=== PATIENT | female | born 1980 | race Hispanic/Latino ===

== ENCOUNTER 2024-12-13 17:13 | Emergency (ER) | payer MEDICAID ==
[~2024-12-13] VITALS: Ht 162.6 cm; Wt 90.7 kg
[2024-12-13] MEDS ORDERED: Solu-medROL 125MG VIAL IVP ONE (17:30)
--- NOTE | 2024-12-13 17:34 | ERN ---
ED Note History of Present Illness Stated Complaint: ASTHMA, SHORTNESS OF BREATH, HOT-FLASHES Chief Complaint: Adult-Asthma Time Seen by MD: 17:14 Dictation: Patient is a 44-year-old asthmatic female coming in today with a expiratory wheezing and shortness a breath over the last 1-2 days. She denies fever chills loss of taste or smell. She states her cough is nonproductive and has been using her Children's nebulizer medications in her machine. She states she went to her doctor's office this afternoon at 05:00 o'clock and he had changed his hours. Allergies: Coded Allergies: No Known Allergies (Unverified Allergy, Unknown, 12/13/24) Past Medical History Past Medical History: Arthritis, Asthma, Hypertension Additional Past Medical Hx: POLIO Surgical History: Cholecystectomy, History: Not Applicable RN Note Reviewed/Agreed w/PFSH: Yes Review of System Dictation CONSTITUTIONAL: Negative except for HPI HEAD/FACE: Negative except for HPI EENT: Negative except for HPI RESPIRATORY: Negative except for HPI expiratory wheezing and shortness a breath GASTROINTESTINAL/ABDOMINAL: Negative except for HPI GENITOURINARY: Negative except for HPI MUSCULOSKELETAL: Negative except for HPI INTEGUMENTARY: Negative except for HPI NEUROLOGICAL/PSYCH: Negative except for HPI HEMATOLOGIC/LYMPHATIC: Negative except for HPI All Systems Negative, Except as noted above. 13 point review of systems assessed and all negative except for above. Initial Vital Sign VS Vital Signs Date Time Temp Pulse Resp B/P (MAP) Pulse Ox O2 Delivery O2 Flow Rate FiO2 12/13/24 17:20 98.1 73 22 148/90 100 Room Air 0 12/13/24 19:42 21 Physical Exam Dictation Vital Signs reviewed General Appearance: Alert, oriented x 3, moderate acute distress, well developed, nourished. Head and Face: non-traumatic. Eyes: PERRL, pink conjunctivas, eyelid no trauma, anterior chamber with arcus senilis. Ears: Pinnas intact and no signs of trauma or erythema ear canals clear and no discharge TM no erythema Nose: No discharge, no bleeding. Oropharynx: Mouth normal, tongue pink, pharynx clear,no erythema, tonsils no exudates, no abscesses noted, mucous memb aspen moist Neck: Supple, non-tender, no thyromegaly, no masses, no JVD, no bruits Breast:Deferred Chest:No tenderness, no crepitus, no paradoxical movement, no retractions Lungs:Clear, well-ventilated, symmetric, bilateral expiratory wheezes throughout, decreased breath sounds. Shortness a breath with speech Heart: Regular rate, regular rhythm, no murmur, no gallops Vascular: no peripheral edema, Abdomen: Soft, positive bowel sounds, nondistended, no guarding, nontender, no rebound, no masses no hepatomegaly, no splenomegaly, no Hubbard's sign, no hernias. Rectal: Deferred Genital: Deferred Neurological: Normal speech, motor function intact, sensory function intact Musculoskeletal: Neck nontender, full range of motion, back nontender, full range of motion, Extremities: nontender, full range of motion Skin: Color pink, dry, no turgor, no rash, no lacerations, no abrasions, no contusions. Lymphatic: Deferred Results (Laboratory/Radiology) Labs Reviewed?: Yes ED Course ED Course Orders Procedure Category Date Status Time Saline Lock Iv CPOE 12/13/24 Transmitted 17:21 Methylprednisolone PHA 12/13/24 Complete Succ 125mg (Solu-Medr 17:30 Albuterol 0.083% PHA 12/13/24 Complete 2.5mg/3ml (Proventil 17:30 Budesonide 0.5 Mg/2 PHA 12/13/24 Complete Ml Inh (Pulmicort 0. 17:21 Methylprednisolone PHA 12/13/24 Complete Succ 125mg (Solu-Medr 18:00 Azithromycin PHA 12/13/24 Logged (Zithromax) 20:30 Current Medications Medications (Trade) Dose Ordered Sig/Go Route PRN Reason Start Time Stop Time Status Last Admin Dose Admin Albuterol Sulfate (Proventil 0.083% 2.5mg/3ml) 5 mg ONCE ONCE IH 12/13/24 17:30 12/13/24 17:31 DC 12/13/24 19:36 Azithromycin (Zithromax) 500 mg ONCE ONCE PO 12/13/24 20:30 12/13/24 20:31 UNV Budesonide (Pulmicort 0.5 Mg/2ml) 1 mg ONCE STAT IH 12/13/24 17:21 12/13/24 17:30 DC 12/13/24 19:32 Methylprednisolone Sodium Succinate (Solu-medROL 125MG) 125 mg ONCE ONCE IM 12/13/24 18:00 12/13/24 18:01 DC 12/13/24 19:29 Methylprednisolone Sodium Succinate (Solu-medROL 125MG) 125 mg ONCE ONCE IVP 12/13/24 17:30 12/13/24 17:36 DC Vital Signs Date Time Temp Pulse Resp B/P (MAP) Pulse Ox O2 Delivery O2 Flow Rate FiO2 12/13/24 19:42 98.1 72 16 145/85 98 Room Air* 0 21 12/13/24 19:38 78 19 12/13/24 17:20 98.1 73 22 148/90 100 Room Air 0 2010/respirations unlabored and patient more clear at this time. She will be discharged home after receiving azithromycin 500 mg p.o. with prednisone, albuterol and Zithromax for three more days. She was told to follow up with her primary care doctor tomorrow without fail for management of her asthma. Medical Decision Making MDM Medical decision-making based on empiric treatment for acute asthma flare. Patient received budesonide/albuterol/Solu-Medrol/azithromycin. Discharged home with albuterol/azithromycin/prednisone Told see her primary care doctor for follow up DX & DISP Disposition: Discharge Departure Impression: Primary Impression: Acute asthma flare Condition: Stable Scripts Azithromycin (Zithromax Tri-Missael) 500 Mg Tablet 1 TAB PO DAILY for 3 Days, #3 TAB 0 Refills Prov: SILVIA ACEVEDO NP 12/13/24 Albuterol Sulfate (Albuterol Sulfate) 2.5 Mg/0.5 Ml Vial.neb 2.5 MG IH Q6H for wheezing/sob, #25 INH 0 Refills Prov: SILVIA ACEVEDO NP 12/13/24 Prednisone (Prednisone) 20 Mg Tablet 1 TAB PO AD for 6 Days, #14 TAB 0 Refills TAKE 1 TAB BY MOUTH THREE TIMES PER DAY X3 DAYS, THEN TAKE 1 TAB BY MOUTH TWICE A DAY X2 DAYS, THEN TAKE 1 TAB BY MOUTH ONCE A DAY X1 DAY. Prov: SILVIA ACEVEDO NP 12/13/24 Additional Instructions: Follow-up with primary care provider in 1 to 2 days. Take medications as directed here in the emergency room. Okay to continue home medications unless otherwise discussed during your visit in the emergency room today. Return to your nearest emergency room if symptoms worsen or if there is no improvement. Call 911 if you need immediate assistance. Take Tylenol or Motrin [id number] as needed and if no contraindications are present. Increase oral hydration. A wound culture or urine culture was ordered here in the emergency room department please follow-up with primary care provider and advise them to get repeat ports from our facility. If you had any Vishnu wrap/splints that were applied here, please do not remove them until you see your primary care or specialty. Use albuterol every4 hours while awake for the next two days. Take prednisone as directed until gone., see your your primary care doctor without fail for management tomorrow or the next day. Time of Disposition: 20:13 I have reviewed the case, and I agree with, Diagnosis and Plan SILVIA ACEVEDO NP Dec 13, 2024 17:34
[2024-12-13] MEDS: Solu-medROL 125MG VIAL IM ONE (19:29)
[2024-12-13] MEDS: BUDESONIDE 0.5 MG/2 ML INH IH STA (19:32)
[2024-12-13] MEDS: ALBUTEROL 0.083% 2.5 MG/3 ML INH IH ONE (19:36)
[2024-12-13 19:38] VITALS: PULSE 78; RESP 19
[2024-12-13] MEDS ORDERED: AZIT500T2 PO (20:14)
[2024-12-13] MEDS ORDERED: PRED20TA3 PO (20:14)
[2024-12-13] MEDS ORDERED: AUD IH (20:14)
[2024-12-13] MEDS ORDERED: AZITHROMYCIN 250 MG TABLET PO ONE (20:30)
[2024-12-13 20:42] VITALS: BP 142/82; PULSE 70; RESP 18; TEMP 98.3; O2SAT 98
== END 2024-12-13 20:51 | disposition home or self-care (01) ==
LOC: EDH 17:13
DX: J45.901 Unspecified asthma with (acute) exacerbation (principal); M19.90 Unspecified osteoarthritis, unspecified site; I10 Essential (primary) hypertension; Z79.51 Long term (current) use of inhaled steroids; Z90.49 Acquired absence of other specified parts of digestive tract
CPT/HCPCS: 99283; 96372; 94640; J2919